=== PATIENT | female | born 1985 | race American Indian/Alaskan Native ===

== ENCOUNTER 2019-01-02 07:22 | Inpatient (IN) | payer MEDICAID, OTHER ==
[2019-01-02] MEDS ORDERED: TERBUTALINE 1 MG/1 ML INJ SUB-Q PRN (07:57)
[2019-01-02] MEDS ORDERED: fentaNYL 100 MCG/2 ML INJ IV PRN (07:57)
[2019-01-02] MEDS ORDERED: ePHEDrine SULFATE 50 MG/1 ML INJ IV PRN (07:57)
[2019-01-02] MEDS ORDERED: LIDOCAINE (2%) 20 MG/1 ML VIAL 20 ML MDV INFILTRATI ONE (07:57)
[2019-01-02] MEDS ORDERED: LACTATED RINGERS 1,000 ML IV SCH (08:00)
--- NOTE | 2019-01-02 08:12 | History and Physical Report ---
History of Present Illness Date of examination: 01/02/19 Date of admission: 01/02/19 Chief complaint: Contractions History of present illness: 33 year old presents to L&D complaining of contractions since 06:00 this AM. Pt. denies leaking of water or vaginal bleeding. Patient received care at [facility] and records are available. LMP 02/26/18. EDC 01/08/19 (based on US). 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 labs are as follows: O-, antibody screen negative, pap smear negative, rubella immune, hepatitis B surface antigen negative, RPR nonreactive, HIV negative, hemoglobin electrophoresis AA, gonorrhea negative, chlamydia negative, trichomonas negative, Panorama low risk, AFP negative, GBS negative. 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 denies: abnormal PAP smear, gonorrhea, hepatitis B, hepatitis C, herpes, HIV, syphilis, trichomonas Family/Genetic History: cancer Social history: single, lives with family, full code. denies: smoking, alcohol abuse, prescription drug abuse, IV drug use - Obstetrical History Expected Date of Delivery: 01/08/19 Actual Gestation: 39 Week(s) 1 Day(s) : 3 Para: 1 Hx # Term Pregnancies: 1 Number of Pregnancies: 0 Spontaneous Abortions: 0 Induced : 1 Number of Living Children: 1 Medications and Allergies Allergies Allergy/AdvReac Type Severity Reaction Status Date / Time No Known Allergies Allergy Verified 01/02/19 07:36 Home Medications Medication Instructions Recorded Confirmed Last Taken Type Ferrous Sulfate [Feosol 325 MG tab] 325 mg PO BID #60 tablet 07/10/14 Unknown Rx Ibuprofen [Motrin 600 MG tab] 600 mg PO Q6HR #30 tablet 07/10/14 Unknown Rx [id number]/Iron Fum/Folic/Docusate 1 each PO QDAY #30 tablet 07/10/14 Unknown Rx [ 19 Tablet] Review of Systems All systems: negative (contractions) - Vital Signs Vital signs: Vital Signs Pulse BP 101 H 138/90 01/02/19 07:33 01/02/19 07:33 Temp Pulse Resp BP Pulse Ox 101 H 138/90 01/02/19 07:33 01/02/19 07:33 - Physical Exam Abdomen: Positive: normal appearance, soft. Negative: distention, tenderness, guarding, rigidity Genitourinary (Female): Positive: normal external genitalia, normal perenium. Negative: perineal/vulvar lesions (no lesions seen on exam under bright light upon admission) Vagina: Positive: normal moisture Uterus: Positive: enlarged (S=D) Anus/Rectum: Positive: normal perianal skin Extremities: Positive: normal - Obstetrical FHR: category 1 Uterine Contraction Monitor Mode: External Cervical Dilatation: 4 Cervical Effacement Percentage: 100 station: -1 Uterine Contraction Pattern: Regular Uterine Contraction Intensity: Moderate Results All other labs normal. Assessment and Plan A: at 39 weeks, 1 day gestation. Active labor. GBS negative. P: Admit. EFM. Anticipate vaginal .
[2019-01-02] MEDS: OXYTOCIN 20 UNIT/1000ML DRIP 20 UNITS/1,000 ML BAG IV SCH ×2 (09:11→11:53)
[2019-01-02] MEDS ORDERED: WITCH HAZEL/ GLYCERIN PAD TP PRN (09:22)
[2019-01-02] MEDS ORDERED: diphenhydrAMINE 25 MG CAP PO PRN (09:22)
[2019-01-02] MEDS ORDERED: LANOLIN/ZINC/DIMETHICONE (LANSINOH) 7 GM TP PRN (09:22)
[2019-01-02] MEDS ORDERED: MAGNESIUM HYDROXIDE (MOM) ORAL LIQD UDC PO PRN (09:22)
--- NOTE | 2019-01-02 09:22 | Procedure Note ---
OB Delivery Note - Delivery Date of Delivery: 01/02/19 Surgeon: AMY NAIR Estimated blood loss: 200cc - Vaginal Delivery presentation: vertex Delivery position: OA Intrapartum events: meconium Delivery induction: AROM Delivery monitor: external FHT, external uterine Delivery placenta: spontaneous Delivery cord: 3 umbilical vessels Episiotomy: none Delivery laceration: none Anesthesia: none Delivery comments: Spontaneous vaginal delivery at 09:07 of liveborn male infant weighing 2282 grams over intact perineum with apgars of 8/9. Thin meconium stained amniotic fluid. NICU team called to attend delivery. Baby was vigorous at and cried immediately. Baby placed skin to skin with mom right after ; mouth and nose bulb suctioned and baby dried with warm towels. 3 vessel cord double clamped and cut and baby taken to radiant warmer for further suctioning and evaluation. Cord blood obtained. Spontaneous delivery of intact placenta and membranes at 09:11; trailing membranes noted. EBL 200 cc. Pitocin to IV fluids after delivery of placenta. Fundus firm and midline. Vaginal sweep negative. No lacerations noted. Sponge count correct. Mother and baby stable in birthing room.
[2019-01-02] MEDS ORDERED: ONDANSETRON 4 MG/2 ML INJ IV ONE (09:49)
[2019-01-02 09:52] LABS: Hematocrit 38.1 % (30.3-42.9); Hemoglobin 12.5 gm/dl (10.1-14.3); Mean Corpuscular HGB Conc 33 % (30-34); Mean Corpuscular Volume 90 fl (79-97); Platelet Count 196 K/mm3 (140-440); Red Blood Count 4.24 M/mm3 (3.65-5.03); Red Cell Distribution Width 14.7 % (13.2-15.2)
[2019-01-02 10:14] LABS: Alanine Aminotransferase 9 units/L (7-56); Albumin 3.2 g/dL (3.9-5); BUN/Creatinine Ratio 18; Blood Urea Nitrogen 9 mg/dL (7-17); Calcium 8.7 mg/dL (8.4-10.2); Hemolysis Index 23
[2019-01-02] MEDS: PRENATAL VIT27-FE FUMARATE-FOLIC ACID VIT TAB PO SCH (10:17)
[2019-01-02] MEDS: IBUPROFEN 600 MG TAB PO SCH ×2 (10:17→17:06)
[2019-01-02 10:39] LABS: Uric Acid 4.9 mg/dL (3.5-7.6)
--- NOTE | 2019-01-02 11:44 | Ultrasound Report ---
Pelvic Ultrasound HISTORY: Check for retained placenta. TECHNIQUE: Grayscale and color imaging performed. COMPARISON: No recent ultrasound available. FINDINGS: The uterus measures 23 x 10 x 10 cm. There is diffuse endometrial thickening and the endome trial echo complex was measured at 2 mm but this is likely underestimated. There is a rounded masslik e structure near the cervix which measures 3.5 cm in maximal dimension and there is surrounding blood flow but no appreciable internal blood flow. The ovaries are not visualized. No significant pelvic f ree fluid. IMPRESSION: Rounded masslike structure in the lower uterine segment with peripheral blood flow but no appreciable internal blood flow. Primary consideration would be a blood clot--correlate with history . With true retained products, there is typically prominent internal blood flow which is not present on this exam. Signer Name: Luis Jack MD Signed: 01/02/2019 11:39 AM Workstation Name: [id number]
[2019-01-02] MEDS: HYDROcodone/ACETAMINOPHEN 5-325 MG TAB PO PRN (12:46)
[2019-01-03] MEDS: IBUPROFEN 600 MG TAB PO SCH ×3 (00:36→23:03)
[2019-01-03 05:47] LABS: Hematocrit 31.9 % (30.3-42.9); Hemoglobin 10.7 gm/dl (10.1-14.3)
[2019-01-03] MEDS: PRENATAL VIT27-FE FUMARATE-FOLIC ACID VIT TAB PO SCH (09:35)
[2019-01-03] MEDS: DOCUSATE SODIUM 100 MG CAP PO SCH ×2 (09:35→23:06)
--- NOTE | 2019-01-03 11:53 | Progress Note ---
Assessment and Plan A: day 1 S/P spontaneous vaginal delivery. Anemia secondary to and blood loss. P: Supplement with iron. Continue current management. Subjective - Subjective Date of service: 01/03/19 Principal diagnosis: day 1 S/P Interval history: day 1 S/P spontaneous vaginal delivery. Doing well. Patient reports small amount of lochia and no large clots. Voiding without difficulty. Ambulating well. Tolerating a regular diet without nausea or vomiting. Patient denies headache, chest pain, cough, shortness of breath, dizziness, or leg pain. Patient reports: appetite normal, voiding normally, pain well controlled, flatus, ambulating normally, no dizzy ambulation, no nauseated : doing well Objective - Vital Signs Latest vital signs: Vital Signs Temp Pulse Resp BP BP Pulse Ox 01/03/19 08:30 98.1 F 66 14 122/78 100 01/03/19 06:16 98.5 F 74 18 114/71 99 01/03/19 01:44 98.6 F 78 20 130/84 98 01/02/19 20:31 98.0 F 84 18 134/82 100 01/02/19 17:02 98.2 F 79 20 125/78 Intake and Output 01/02/19 01/03/19 01/03/19 23:59 07:59 15:59 Intake Total 480 600 480 Output Total 1400 800 Balance -920 -200 480 Intake: Oral 240 480 Intake, Free Water 240 600 Output: Urine 1400 800 Void 1400 800 Other: Total, Intake Amount 240 240 Total, Output Amount 800 800 Voiding Method Toilet # Voids Void 1 - Exam Cardiovascular: Present: Regular rate, Normal S1, Normal S2, No murmurs Lungs: Present: Clear to auscultation Abdomen: Present: normal appearance, soft, normal bowel sounds. Absent: distention, tenderness, guarding, rigidity Uterus: Present: normal, firm, fundal height below umbilicus. Absent: bogginess, tenderness Extremities: Present: normal. Absent: tenderness, edema
[2019-01-03] MEDS: FERROUS SULFATE 325 MG TAB PO SCH (23:06)
[2019-01-03] MEDS: HYDROcodone/ACETAMINOPHEN 5-325 MG TAB PO PRN (23:09)
[2019-01-04] MEDS: IBUPROFEN 600 MG TAB PO SCH ×2 (05:58→12:23)
--- NOTE | 2019-01-04 07:44 | Progress Note ---
Assessment and Plan A: day 2 S/P . Anemia secondary to and blood loss. P: Discharge patient home today. discharge instructions and warning signs discussed with patient. Advised pt. to avoid intercourse, lifting, and heavy housework. Pt. to continue PNV and iron at home. Follow up at [facility] in 2 weeks to discuss having BTL. Pt. voiced understanding of instructions. Subjective - Subjective Date of service: 01/04/19 Principal diagnosis: day 2 S/P Interval history: day 2 S/P spontaneous vaginal delivery. Patient desires discharge today. Doing well. Patient reports small amount of lochia and no large clots. Voiding without difficulty. Ambulating well. Tolerating a regular diet without nausea or vomiting. Patient denies headache, chest pain, cough, shortness of breath, dizziness, or leg pain. Patient is planning to have her tubes tied at 6 weeks . Patient reports: appetite normal, voiding normally, pain well controlled, f latus, ambulating normally, no dizzy ambulation, no nauseated [place]: doing well, bottle feeding Objective - Vital Signs Latest vital signs: Vital Signs Temp Pulse Resp BP Pulse Ox 01/04/19 05:58 18 01/03/19 23:34 97.9 F 82 18 115/70 94 01/03/19 23:09 18 01/03/19 23:03 18 01/03/19 16:44 97.6 F 91 H 16 133/93 100 01/03/19 08:30 98.1 F 66 14 122/78 100 Intake and Output 01/03/19 01/03/19 01/04/19 15:59 23:59 07:59 Intake Total 2320 720 Balance 2320 720 Intake: Oral 2320 720 Other: Total, Intake Amount 920 360 Voiding Method Toilet Toilet # Voids 1 1 Void 1 1 - Exam Cardiovascular: Present: Regular rate, Normal S1, Normal S2, No murmurs Lungs: Present: Clear to auscultation Abdomen: Present: normal appearance, soft. Absent: distention, tenderness, guarding, rigidity Uterus: Present: normal, firm, fundal height below umbilicus. Absent: bogginess, tenderness Extremities: Present: normal. Absent: tenderness, edema
--- NOTE | 2019-01-04 07:47 | Discharge Summary ---
Providers - Providers Date of Admission: 01/02/19 08:35 Date of discharge: 01/04/19 Attending physician: CHRIS ROSALES MD None Primary care physician: PHARMACY MESSENGER Hospitalization Reason for admission: active labor Delivery: Episiotomy: none Laceration: none Other procedures: none complications: none Discharge diagnosis: IUP at term delivered [place] baby: male Pertinent studies: Labs Hospital course: Normal hospital course Condition at discharge: Good Disposition: DC-01 TO HOME OR SELFCARE - Discharge Diagnoses (1) Term delivered Status: Acute (2) Anemia due to blood loss Status: Acute Plan - Provider Discharge Summary Activity: routine, no sex for 6 weeks, no heavy lifting 4 weeks, no strenuous exercise Diet: routine Instructions: routine Additional instructions: Continue taking your vitamin and iron supplements at home. Call your doctor immediately for: * Fever > 100.5 * Heavy vaginal bleeding ( >1 pad per hour) * Severe persistent headache * Shortness of breath * Reddened, hot, painful area to leg or breast - Follow up plan Follow up: ANASTACIO BECKER MD [Staff Physician] - 14 Days
[2019-01-04] MEDS: FERROUS SULFATE 325 MG TAB PO SCH (12:22)
[2019-01-04] MEDS: DOCUSATE SODIUM 100 MG CAP PO SCH (12:22)
[2019-01-04] MEDS: PRENATAL VIT27-FE FUMARATE-FOLIC ACID VIT TAB PO SCH (12:23)
[2019-01-04 16:35] VITALS: BP 130/84
== END 2019-01-04 20:15 | disposition home or self-care (01) | DRG 806 ==
LOC: TRG 07:22 → LD 08:35 → OB 12:04
PROVIDERS: ADMIT Obstetrics & Gynecology; ATTEND Obstetrics & Gynecology
PROC: 10E0XZZ Delivery of Products of Conception, External Approach (ICD-10-PCS; principal; 2019-01-02)
PROC: 10907ZC Drainage of Amniotic Fluid, Therapeutic from Products of Conception, Via Natural or Artificial Opening (ICD-10-PCS; 2019-01-02)
DX: O77.0 Labor and delivery complicated by meconium in amniotic fluid (principal); D62 Acute posthemorrhagic anemia; Z37.0 Single live birth; Z3A.39 39 weeks gestation of pregnancy; O99.02 Anemia complicating childbirth
CPT/HCPCS: 36415; 76857; 80053; 83615; 84550; 85014; 85018; 85027; 86850; 86900; 86901; 96374; G0378; J2405; J2590; J7120

== ENCOUNTER 2020-09-29 20:06 | Emergency (ER) | payer MEDICAID ==
[2020-09-30 00:41] LABS: Basophils % (Auto) 0.3 % (0.0-1.8); Hematocrit 39.9 % (30.3-42.9); Hemoglobin 13.5 gm/dl (10.1-14.3); Lymphocytes # (Auto) 0.8 K/mm3 (1.2-5.4); Lymphocytes % (Auto) 18.8 % (13.4-35.0); Mean Corpuscular HGB Conc 34 % (30-34); Mean Corpuscular Volume 89 fl (79-97); Monocytes # (Auto) 0.3 K/mm3 (0.0-0.8); Monocytes % (Auto) 7.2 % (0.0-7.3); Platelet Count 212 K/mm3 (140-440); Red Blood Count 4.49 M/mm3 (3.65-5.03); Red Cell Distribution Width 13.2 % (13.2-15.2)
[2020-09-30 00:52] LABS: Blood Urea Nitrogen 7 mg/dL (7-17); Calcium 7.9 mg/dL (8.4-10.2); Hemolysis Index 3
[2020-09-30 01:17] LABS: BUN/Creatinine Ratio 12
[2020-09-30] MEDS ORDERED: ONDANSETRON 4 MG/2 ML INJ IV ONE (01:23)
[2020-09-30] MEDS ORDERED: FAMOTIDINE 20 MG/2 ML INJ IV ONE (01:23)
[2020-09-30] MEDS ORDERED: KETOROLAC 30 MG/1 ML INJ IV ONE (01:23)
[2020-09-30] MEDS ORDERED: SODIUM CHLORIDE 0.9% 1000 ML 1,000 ML IV ONE (01:24)
--- NOTE | 2020-09-30 01:57 | XRay Report ---
CHEST 2 VIEWS INDICATION / CLINICAL INFORMATION: cough. COMPARISON: None available. FINDINGS: SUPPORT DEVICES: None. HEART / MEDIASTINUM: No significant abnormality. LUNGS / PLEURA: There are bibasilar airspace opacities, right greater than left. No significant pleur al effusion. No pneumothorax. ADDITIONAL FINDINGS: No significant additional findings. IMPRESSION: Suspected bibasilar pneumonia. Continued radiographic follow-up to resolution is recommended. Signer Name: Sly Saeed MD Signed: 09/30/2020 1:52 AM Workstation Name: [id number]
[2020-09-30 02:03] LABS: Alanine Aminotransferase 13 units/L (7-56); Albumin 4.1 g/dL (3.9-5)
[2020-09-30] MEDS ORDERED: AZITHROMYCIN 250 MG TAB PO ONE (02:06)
[2020-09-30] MEDS ORDERED: cefTRIAXone/NS 1 GM/50 ML 1 GM/50 ML BAG IV ONE (02:06)
[2020-09-30 02:07] LABS: Bilirubin,Direct < 0.2 mg/dL (0-0.2)
--- NOTE | 2020-09-30 02:07 | Emergency Department Report ---
ED N/V/D HPI - General Chief complaint: Nausea/Vomiting/Diarrhea Stated complaint: WEAKNESS/CHILLS/DIARRHEA/EMESIS Source: patient, EMS Mode of arrival: Stretcher Limitations: No Limitations - History of Present Illness Initial comments: Patient is a 34-year-old -Gabonese female with no past medical history presents to the ED with complaint of acute onset persistent dry cough, diffuse body aches and pains, loss of taste and sensation of smell, frontal headache, nasal and sinus congestion, nausea, vomiting and diarrhea for the last 1 week. Patient states that her own 18-year-old son had similar symptoms prior to her symptom onset over 1 week ago but has since recovered. Patient states that in the last 3 days she has not been able to sleep because of worsening body aches and pains and that she has not been able to keep anything down because of persistent nausea and vomiting with diarrhea. Patient states that she has not been vaccinated with Covid 19 vaccination. Patient denies dizziness, syncope, chest pain, shortness of breath, sore throat, dysuria, urinary frequency and urgency, low back pain, hemoptysis, hematochezia, vaginal bleeding or seizures. MD complaint: nausea, vomiting, diarrhea, other (dry cough, fever, headache) -: Sudden, week(s) (1) Description of Vomiting: food contents, watery Description of Diarrhea: water Associated Abdominal Pain: No Location: diffuse Radiation: none Severity: severe Pain Scale: 7 Improves with: none Worsens with: eating, vomiting Context: possible food poisoning, sick contacts Associated Symptoms: denies other symptoms, myalgias, cough, fever/chills, headaches, loss of appetite, malaise, nausea/vomiting. denies: chest pain, diaphoresis, rash, dysuria, shortness of breath, syncope, weakness - Related Data Previous Rx's Medication Instructions Recorded Last Taken Type Ferrous Sulfate [Feosol 325 MG tab] 325 mg PO BID #60 tablet 07/10/14 Unknown Rx Ibuprofen [Motrin 600 MG tab] 600 mg PO Q6HR #30 tablet 07/10/14 Unknown Rx [id number]/Iron Fum/Folic/Docusate 1 each PO QDAY #30 tablet 07/10/14 Unknown Rx [ 19 Tablet] Acetaminophen [Tylenol] 500 mg PO Q6HR PRN #30 tablet 09/30/20 Unknown Rx Ascorbic Acid [Vitamin C] 1,000 mg PO Q12H #30 tablet 09/30/20 Unknown Rx Benzonatate [Tessalon Perles] 100 mg PO Q8HR #30 capsule 09/30/20 Unknown Rx Doxycycline Hyclate 100 mg PO Q12H #20 tablet. 09/30/20 Unknown Rx Famotidine [Pepcid] 20 mg PO BID #30 tablet 09/30/20 Unknown Rx Ondansetron [Zofran Odt] 4 mg PO Q6HR PRN #20 tab.rapdis 09/30/20 Unknown Rx Zinc [Zinc 50mg TAB] 50 mg PO DAILY #30 tablet 09/30/20 Unknown Rx Allergies Allergy/AdvReac Type Severity Reaction Status Date / Time No Known Allergies Allergy Verified 01/02/19 07:36 ED Review of Systems ROS: Stated complaint: WEAKNESS/CHILLS/DIARRHEA/EMESIS Other details as noted in HPI Constitutional: chills, fever, malaise, weakness Eyes: denies: eye pain, eye discharge, vision change ENT: congestion. denies: ear pain, throat pain Respiratory: cough. denies: shortness of breath, wheezing Cardiovascular: denies: chest pain, palpitations Endocrine: no symptoms reported Gastrointestinal: nausea, vomiting, diarrhea. denies: abdominal pain Genitourinary: denies: urgency, dysuria, discharge Musculoskeletal: arthralgia, myalgia. denies: back pain, joint swelling Skin: denies: rash, lesions Neurological: headache. denies: weakness, paresthesias Psychiatric: denies: anxiety, depression Hematological/Lymphatic: denies: easy bleeding, easy bruising ED Past Medical Hx - Past Medical History Previous Medical History?: No Hx Hypertension: No Hx Congestive Heart Failure: No Hx Diabetes: No Hx Deep Vein Thrombosis: No Hx Renal Disease: No Hx Sickle Cell Disease: No Hx Seizures: No Hx Asthma: No Hx COPD: No Hx HIV: No - Surgical History Past Surgical History?: Yes Additional Surgical History: - Social History Smoking Status: Never Smoker Substance Use Type: None - Medications Home Medications: Home Medications Medication Instructions Recorded Confirmed Last Taken Type Ferrous Sulfate [Feosol 325 MG tab] 325 mg PO BID #60 tablet 07/10/14 01/03/19 Unknown Rx Ibuprofen [Motrin 600 MG tab] 600 mg PO Q6HR #30 tablet 07/10/14 01/03/19 Unknown Rx [id number]/Iron Fum/Folic/Docusate 1 each PO QDAY #30 tablet 07/10/14 01/03/19 Unknown Rx [ 19 Tablet] Acetaminophen [Tylenol] 500 mg PO Q6HR PRN #30 tablet 09/30/20 Unknown Rx Ascorbic Acid [Vitamin C] 1,000 mg PO Q12H #30 tablet 09/30/20 Unknown Rx Benzonatate [Tessalon Perles] 100 mg PO Q8HR #30 capsule 09/30/20 Unknown Rx Doxycycline Hyclate 100 mg PO Q12H #20 tablet. 09/30/20 Unknown Rx Famotidine [Pepcid] 20 mg PO BID #30 tablet 09/30/20 Unknown Rx Ondansetron [Zofran Odt] 4 mg PO Q6HR PRN #20 tab.rapdis 09/30/20 Unknown Rx Zinc [Zinc 50mg TAB] 50 mg PO DAILY #30 tablet 09/30/20 Unknown Rx ED Physical Exam - General Limitations: No Limitations General appearance: alert, in no apparent distress - Head Head exam: Present: atraumatic, normocephalic, normal inspection - Eye Eye exam: Present: normal appearance, PERRL, EOMI Pupils: Present: normal accommodation - ENT ENT exam: Present: normal exam, normal orophraynx, mucous membranes moist, TM's normal bilaterally, normal external ear exam - Neck Neck exam: Present: normal inspection, full ROM - Respiratory Respiratory exam: Present: normal lung sounds bilaterally. Absent: respiratory distress, wheezes, rales, rhonchi, stridor, chest wall tenderness, accessory muscle use, decreased breath sounds, prolonged expiratory - Cardiovascular Cardiovascular Exam: Present: normal rhythm, tachycardia, normal heart sounds. Absent: systolic murmur, diastolic murmur, rubs, gallop - GI/Abdominal GI/Abdominal exam: Present: soft, normal bowel sounds. Absent: tenderness, guarding, hyperactive bowel sounds, hypoactive bowel sounds, organomegaly - Extremities Exam Extremities exam: Present: normal inspection, full ROM, normal capillary refill - Back Exam Back exam: Present: normal inspection, full ROM. Absent: tenderness, CVA tenderness (R), CVA tenderness (L), muscle spasm, paraspinal tenderness, v ertebral tenderness - Neurological Exam Neurological exam: Present: alert, oriented X3, CN II-XII intact, normal gait, reflexes normal - Psychiatric Psychiatric exam: Present: normal affect, normal mood - Skin Skin exam: Present: warm, dry, intact, normal color. Absent: rash ED Course Vital Signs 09/29/20 22:31 Temperature 98.4 F Pulse Rate 112 H Respiratory 18 Rate Blood Pressure 110/75 O2 Sat by Pulse 99 Oximetry ED Medical Decision Making - Lab Data Result diagrams: 09/29/20 23:12 09/29/20 23:12 - Radiology Data Radiology results: report reviewed, image reviewed [facility] [address] [place] [address] XRay Report Signed Patient: NOBLE RAGLAND MR#: [id number] : 1985 Acct:[id number] Age/Sex: 34 / F ADM Date: 09/29/20 Loc: ED Attending Dr: Ordering Physician: HARIKA DOMINGUEZ III, MD Date of Service: 09/29/20 Procedure(s): XR chest routine 2V Accession Number(s): [id number] cc: HARIKA DOMINGUEZ III, MD Fluoro Time In Minutes: CHEST 2 VIEWS INDICATION / CLINICAL INFORMATION: cough. COMPARISON: None available. FINDINGS: SUPPORT DEVICES: None. HEART / MEDIASTINUM: No significant abnormality. LUNGS / PLEURA: There are bibasilar airspace opacities, right greater than left. No significant pleural effusion. No pneumothorax. ADDITIONAL FINDINGS: No significant additional findings. IMPRESSION: Suspected bibasilar pneumonia. Continued radiographic follow-up to resolution is recommended. Signer Name: Sly Saeed MD Signed: 09/30/2020 1:52 AM Workstation Name: [id number] Transcribed By: ZHOU Dictated By: Sly Saeed MD Electronically Authenticated By: Sly Saeed MD Signed Date/Time: 09/30/20151 DD/ 0 TD/TT: - Medical Decision Making This is a 34-year-old -Gabonese female with no past medical history presents to the ED with complaint of acute onset persistent dry cough, diffuse body aches and pains, loss of taste and sensation of smell, frontal headache, nasal and sinus congestion, nausea, vomiting and diarrhea for the last 1 week. Patient states that her own 18-year-old son had similar symptoms prior to her symptom onset over 1 week ago but has since recovered. Patient states that in the last 3 days she has not been able to sleep because of worsening body aches and pains and that she has not been able to keep anything down because of p ersistent nausea and vomiting with diarrhea. Patient states that she has not been vaccinated with Covid 19 vaccination. In the ED, patient is alert and oriented x3 and is not in any distress but tachycardic and afebrile in triage. Lab test results were reviewed and are all nonactionable. Chest x-ray shows suspected bibasilar pneumonia. Patient was treated in the ED with antiemetics, normal saline 1 L IV bolus x1, antacids as well as Rocephin 1 g IV x1 as well as azithromycin for suspected bibasilar pneumonia. On reevaluation, patient felt better, patient passed oral fluid challenge in the ED and tachycardia also resolved. Patient was discharged home on medications and advised to obtain a COVID-19 diagnostic test to ascertain her infection status with COVID-19. Patient was also encouraged to obtain COVID-19 vaccination upon her recovery. Patient was otherwise advised to return to the ED immediately if her symptoms get worse. Patient was also advised to follow-up with her primary care physician in 7 to 10 days for reevaluation. - Differential Diagnosis COVID-19; URI; gastroenteritis; pneumonia; bronchitis; UTI Critical care attestation.: If time is entered above; I have spent that time in minutes in the direct care of this critically ill patient, excluding procedure time. ED Disposition Clinical Impression: Community acquired bacterial pneumonia, Nausea, vomiting and diarrhea, Acute upper respiratory infection Disposition: DC-01 TO HOME OR SELFCARE Is pt being admited?: No Does the pt Need Aspirin: No Condition: Stable Instructions: Nausea and Vomiting, Adult, [id number], Upper Respiratory Infection, Adult, [id number], Diarrhea, Adult, [id number], Community- Acquired Pneumonia, Adult, [id number] Additional Instructions: All lab test results were reviewed and are all nonactionable. Chest x-ray shows suspected bibasilar pneumonia although Covid pneumonia cannot be ruled out. Therefore take medication with food, drink plenty of fluids and follow-up with your primary care physician in 5 to 7 days for reevaluation. Return to the ED immediately if symptoms get worse. Prescriptions: Acetaminophen [Tylenol] 500 mg PO Q6HR PRN #30 tablet PRN Reason: Pain , Severe (7-10) Doxycycline Hyclate 100 mg PO Q12H #20 tablet. Famotidine [Pepcid] 20 mg PO BID #30 tablet Benzonatate [Tessalon Perles] 100 mg PO Q8HR #30 capsule Ascorbic Acid [Vitamin C] 1,000 mg PO Q12H #30 tablet Zinc [Zinc 50mg TAB] 50 mg PO DAILY #30 tablet Ondansetron [Zofran Odt] 4 mg PO Q6HR PRN #20 tab.rapdis PRN Reason: Nausea Referrals: [facility] [Provider Group] - 7-10 days Forms: Work/School Release Form(ED) Time of Disposition: 02:46 Print Language: MALAY
[2020-09-30 02:38] LABS: Bacteria,Urine 1+ /HPF (Negative); Bilirubin,Urine NEG (Negative); Blood,Urine NEG (Negative); Color,Urine Yellow (Yellow); Mucus,Urine 3+ /HPF; Urobilinogen,Urine < 2.0 mg/dL (<2.0)
[2020-09-30 03:25] VITALS: BP 110/67
--- NOTE | 2020-10-01 14:24 | Electrocardiograph Report ---
[facility] Test Date: 2020-09-29 Test Time: 22:58:25 Pat Name: NOBLE RAGLAND Department: Room: Gender: F [employer]: [place] : 1985 Requested By: HARIKA DOMINGUEZ III Order Number: [id number] Reading MD: Sheri Putnam Measurements Intervals [place] Rate: 109 P: 55 DC: 144 QRS: 56 QRSD: 75 T: -3 QT: 316 QTc: 425 Interpretive Statements Sinus tachycardia Borderline T abnormalities, diffuse leads No previous ECG available for comparison Electronically Signed On 10-01-2020 14:24:39 EDT by Sheri Putnam
== END 2020-09-30 03:30 | disposition home or self-care (01) ==
LOC: ED 20:06
DX: J15.9 Unspecified bacterial pneumonia (principal); J06.9 Acute upper respiratory infection, unspecified; R11.2 Nausea with vomiting, unspecified; R19.7 Diarrhea, unspecified; Z79.899 Other long term (current) drug therapy
CPT/HCPCS: 36415; 71046; 80048; 80076; 81001; 84703; 85025; 87086; 93005; 96361; 96365; 96375; 99284; J0696; J1885; J2405; J7030